=== PATIENT | male | born 1975 | race Two or more races ===

== ENCOUNTER 2020-01-16 15:24 | Outpatient (CLI) | payer OTHER | END 2020-01-16 16:00 | disposition home or self-care (01) | LOC: OFIC 805 15:24 | PROVIDERS: ATTEND Otolaryngology Otology & Neurotology | DX: H69.82 Other specified disorders of Eustachian tube, left ear (principal); H92.02 Otalgia, left ear; H93.13 Tinnitus, bilateral ==